=== PATIENT | male | born 1980 | race Caucasian/White ===

== ENCOUNTER 2020-03-26 15:30 | Emergency (ER) | payer SELFPAY ==
[~2020-03-26] VITALS: Ht 162.6 cm; Wt 60.0 kg
[2020-03-26] MEDS ORDERED: HYDROCODONE/ACETAMINOPHEN 5/325MG TABLET PO ONE ×2 (15:45→20:45)
[2020-03-26] MEDS ORDERED: PROPOFOL 200MG/20ML VIAL IV ONE (17:30)
[2020-03-26] MEDS ORDERED: ACETAMINOPHEN 500MG TABLET PO ONE (21:30)
[2020-03-26 22:13] VITALS: BP 116/84
== END 2020-03-26 22:16 | disposition home or self-care (01) ==
LOC: ER 15:30
DX: S92.062A Displaced intraarticular fracture of left calcaneus, initial encounter for closed fracture (principal); Y93.66 Activity, soccer; Y92.39 Other specified sports and athletic area as the place of occurrence of the external cause
CPT/HCPCS: 28400; 73590; 73610; 73630; 73700; 99152; 99285; J2704